=== PATIENT | female | born 1980 | race Caucasian/White ===

== ENCOUNTER 2016-08-29 09:13 | Outpatient (CLI) | payer OTHER ==
[~2016-08-29] VITALS: Ht 172.7 cm; Wt 84.4 kg
[2016-08-29] VITALS (9 sets, daily range): BP systolic 98–121; BP diastolic 66–78; PULSE 68–93
[~2016-08-29 09:13] MED LIST: FIORICET 325 MG1 TA1 PO; MOTRIN 800800 MG/TAB PO; PRILOSEC 20MG20 MG PO
[2016-08-29 15:24] LABS: CEREBROSPINAL TUBE #4
[2016-08-29 16:28] LABS: CSF APPEARANCE CLEAR; CSF COLOR COLORLESS
== END 2016-08-29 12:54 | disposition home or self-care (01) ==
LOC: COL.RAD 09:13
PROVIDERS: Psychiatry & Neurology Neurology
DX: G93.2 Benign intracranial hypertension (principal); G43.009 Migraine without aura, not intractable, without status migrainosus

== ENCOUNTER 2017-08-07 10:11 | Outpatient (CLI) | payer OTHER ==
[~2017-08-07] VITALS: Ht 172.7 cm; Wt 80.8 kg
[2017-08-07] MEDS ORDERED: LASIX 40MG TABL40 MG PO (10:24)
[2017-08-07] MEDS ORDERED: MIDRIN 325 MG-11 CAP PO (10:25)
[2017-08-07] MEDS ORDERED: LINZESS145CAP PO (10:26)
[2017-08-07] MEDS ORDERED: MAG-OX 400400 MG/TAB PO (10:26)
[2017-08-07] MEDS ORDERED: ZYRTEC-D 5 MG-11 TER PO (10:28)
[2017-08-07] MEDS ORDERED: TOPAMAX 25MG25 M1 PO (10:28)
[2017-08-07 10:29] VITALS: BP 113/80; PULSE 81
[2017-08-07 11:15] VITALS: BP 109/74; PULSE 71
[2017-08-07 11:20] VITALS: BP 109/74; PULSE 72
[2017-08-07 11:30] VITALS: BP 117/85; PULSE 69
[2017-08-07 11:46] LABS: GLUCOSE,CSF 47 mg/dL (40-70)
[2017-08-07 12:10] LABS: CSF APPEARANCE CLEAR; CSF COLOR COLORLESS; CSF MONONUCLEAR 100 % (70-100); CSF POLYMORPHONUCLEAR 0 % (0-6); CSF RBC 0 /mm3 (0-0)
[2017-08-07 12:15] VITALS: BP 121/73; PULSE 71
[2017-08-07 12:55] LABS: TOTAL PROTEIN,CSF 45 mg/dL (15-45)
== END 2017-08-07 12:25 | disposition home or self-care (01) ==
LOC: COL.RAD 10:11
PROVIDERS: Nurse Practitioner
DX: G43.009 Migraine without aura, not intractable, without status migrainosus (principal); G93.2 Benign intracranial hypertension

== ENCOUNTER 2017-08-15 10:08 | Outpatient (CLI) | payer OTHER ==
[~2017-08-15] VITALS: Ht 172.7 cm; Wt 79.0 kg
[~2017-08-15 10:08] MED LIST changes: +LASIX 40MG TABL40 MG PO; +LINZESS145CAP PO; +MAG-OX 400400 MG/TAB PO; +MIDRIN 325 MG-11 CAP PO; +TOPAMAX 25MG25 M1 PO; +ZYRTEC-D 5 MG-11 TER PO
[2017-08-15] MEDS ORDERED: ALEVE 220MG220 MG PO (10:35)
[2017-08-15 10:41] VITALS: BP 106/73; PULSE 85; TEMP 97.6
[2017-08-15 13:39] VITALS: BP 114/85; PULSE 65; TEMP 97.7
== END 2017-08-15 14:09 | disposition home or self-care (01) ==
LOC: EUO 10:08
DX: G93.2 Benign intracranial hypertension (principal)